=== PATIENT | male | born 1970 | race Caucasian/White ===

== ENCOUNTER 2017-12-12 22:00 | Emergency (ER) | payer OTHER ==
[~2017-12-12] VITALS: Ht 172.7 cm; Wt 81.7 kg
[~2017-12-12 22:00] MED LIST: AMOXICILLIN 50500 MG; BIAXIN 500 MG500 M1; CLONIDINE0.1 PO; LISINOPRIL5 MG; MECLIZINE HCL25 M1 PO; NAPROSYN500 MG PO; NORCO 5-325 TA1 EACH PO; PRILOSEC 20 MG20 MG PO; PROTONIX 20 MG20 M1 PO; PROTONIX40 M2; TOPROL XL25 MG; TUSSIONEX PENN473 ML PO; VENTOLIN HFA 1818 GM INH; ZOFRAN ODT8 MG PO; ZPAK PO
[2017-12-12] MEDS ORDERED: BACTRIM DS TAB1 EACH PO (23:40)
== END 2017-12-13 00:20 | disposition home or self-care (01) ==
LOC: ER 22:00
DX: L02.434 Carbuncle of left upper limb (principal); L02.433 Carbuncle of right upper limb; L02.424 Furuncle of left upper limb; L02.423 Furuncle of right upper limb; I10 Essential (primary) hypertension; F17.210 Nicotine dependence, cigarettes, uncomplicated; Z88.6 Allergy status to analgesic agent

== ENCOUNTER 2018-01-30 22:38 | Emergency (ER) | payer OTHER ==
[~2018-01-30] VITALS: Ht 172.7 cm; Wt 81.7 kg
[~2018-01-30 22:38] MED LIST changes: +BACTRIM DS TAB1 EACH PO
[2018-01-30] MEDS ORDERED: MORPHINE SULFAT15 M3 PO (23:07)
[2018-01-30] MEDS ORDERED: PREDNISONE 20 M20 MG PO (23:07)
== END 2018-01-30 23:24 | disposition home or self-care (01) ==
LOC: ER 22:38
DX: M54.12 Radiculopathy, cervical region (principal); F17.210 Nicotine dependence, cigarettes, uncomplicated; Z88.6 Allergy status to analgesic agent; I10 Essential (primary) hypertension

== ENCOUNTER 2019-03-18 01:17 | Emergency (ER) | payer OTHER ==
[~2019-03-18] VITALS: Ht 172.7 cm; Wt 99.8 kg
[~2019-03-18 01:17] MED LIST changes: +MORPHINE SULFAT15 M3 PO; +PREDNISONE 20 M20 MG PO
[2019-03-18 02:25] LABS: ABSOLUTE NEUTROPHILS 5.3 thou/uL (1.4-8.2); BASOPHILS 1.1 % (0.0-2.0); HEMATOCRIT 40.5 % (42.0-52.0); HEMOGLOBIN 13.9 gm/dL (14.0-18.0); LYMPHOCYTES 32.2 % (24.0-44.0); MCH 34.5 pg (26.0-34.0); MCHC 34.2 g/dL (28.0-37.0); MCV 100.7 fL (80.0-100.0); MONOCYTES 5.6 % (1.0-8.0); PLATELET COUNT 251 thou/uL (150-400); POLYS 58.1 % (36.0-66.0); RBC 4.02 mil/uL (4.50-6.00); RDW 14.5 % (10.5-14.5); WBC 9.2 thou/uL (4.0-11.0)
[2019-03-18 02:41] LABS: CALCIUM 8.9 mg/dL (8.5-10.1); CREATININE 1.3 mg/dL (0.7-1.3); POTASSIUM 3.8 mmol/L (3.5-5.1)
[2019-03-18 02:46] LABS: ALBUMIN 3.5 g/dL (3.4-5.0); TOTAL BILIRUBIN 0.2 mg/dL (<0.1-1.0)
[2019-03-18 03:22] LABS: URINE BILIRUBIN NEGATIVE (Negative); URINE BLOOD 1+ (Negative); URINE CLARITY CLEAR; URINE COLOR YELLOW; URINE GLUCOSE-RANDOM* NEGATIVE (Negative); URINE KETONES NEGATIVE (Negative); URINE LEUKOCYTES-REFLEX NEGATIVE (Negative); URINE NITRITE-REFLEX NEGATIVE (Negative); URINE PROTEIN (DIPSTICK) TRACE (Negative); URINE SPECIFIC GRAVITY >= 1.030 (1.005-1.035)
[2019-03-18 03:30] LABS: AMP/METHAMP Negative (Negative); BARBITURATES Negative (Negative); BENZODIAZEPINES Negative (Negative); COCAINE Negative (Negative); METHADONE Negative (Negative); OPIATES Negative (Negative); PCP Negative (Negative)
[2019-03-18 03:36] LABS: BACTERIA-REFLEX 1-9 Few /HPF (None Seen); CASTS None Seen /LPF (None Seen); CRYSTALS None Seen /LPF (None Seen); MUCUS 4-6 Moderate strn/LPF (None Seen); SQUAMOUS 0-3 Few /LPF (0-3); URINE RBC 3-10 Few /HPF (0-2); URINE WBC-REFLEX 0-5 Rare /HPF (0-5)
[2019-03-18] MEDS ORDERED: BENTYL 20 MG TA20 M1 PO (04:48)
[2019-03-18] MEDS ORDERED: PEPCID40 MG PO (04:48)
[2019-03-18 05:34] VITALS: BP 128/79
--- NOTE | 2019-03-18 09:01 | EKG ---
[place] [address] [place] [address] ELECTROCARDIOGRAM REPORT Name: ISABEL RIVERO [facility]: [facility] [id number] ������������������ Admission: 03/18/19 ������������������ Attend Phys: Discharge: 03/18/19 ������������������ Date of : 70 Report #: [id number] ����������������������������������������������������������������� [id number] THIS REPORT FOR: //name// 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: NORRIS : 1970 Requested By: Jah Agrawal Order Number: [id number] MD: Praful Arguelles Measurements Intervals [place] Rate: 85 P: 13 CA: 134 QRS: 9 QRSD: 102 T: 107 QT: 364 QTc: 433 Interpretive Statements Sinus rhythm Nonspecific T abnormalities, lateral leads Compared to ECG 05/10/2017 04:33:42 No significant change was found Electronically Signed On 03-18-2019 9:01:12 CDT by Praful Arguelles [email or web address] ��������������������������������������������� <ELECTRONICALLY SIGNED> ���������������������������������������� By: Praful Arguelles MD, [facility] ��������������������������������������������� 03/18/19 0901 0128 [id number] Praful Arguelles MD, FACC /EPI
== END 2019-03-18 05:35 | disposition home or self-care (01) ==
LOC: ER 01:17
PROVIDERS: Emergency Medicine
DX: R10.30 Lower abdominal pain, unspecified (principal); F17.210 Nicotine dependence, cigarettes, uncomplicated; I10 Essential (primary) hypertension; K21.9 Gastro-esophageal reflux disease without esophagitis; Z88.6 Allergy status to analgesic agent

== ENCOUNTER → 2021-09-03 | Outpatient (CLI) | payer OTHER ==
[~2021-09-03] MED LIST changes: +BENTYL 20 MG TA20 M1 PO; +PEPCID40 MG PO
== END ==
LOC: HYPER 08:30
PROVIDERS: ATTEND Emergency Medicine Emergency Medical Services
DX: S91.351A Open bite, right foot, initial encounter (principal); S91.301A Unspecified open wound, right foot, initial encounter; L97.512 Non-pressure chronic ulcer of other part of right foot with fat layer exposed; R60.0 Localized edema; E78.5 Hyperlipidemia, unspecified; G47.33 Obstructive sleep apnea (adult) (pediatric); I73.89 Other specified peripheral vascular diseases; I10 Essential (primary) hypertension; I25.10 Atherosclerotic heart disease of native coronary artery without angina pectoris; I25.2 Old myocardial infarction; J43.9 Emphysema, unspecified; F17.200 Nicotine dependence, unspecified, uncomplicated; Z86.73 Personal history of transient ischemic attack (TIA), and cerebral infarction without residual deficits; Z95.5 Presence of coronary angioplasty implant and graft; W54.0XXA Bitten by dog, initial encounter; Y93.89 Activity, other specified; Y92.89 Other specified places as the place of occurrence of the external cause; Y99.8 Other external cause status